=== PATIENT | female | born 1985 | race Caucasian/White ===

== ENCOUNTER → 2019-08-13 | Outpatient (CLI) | payer OTHER ==
[~2019-08-13] MED LIST: OCP; PRM25T PO
--- NOTE | 2019-08-13 11:44 | Diagnostic Imaging Report ---
INDICATION: Follow-up trauma left elbow. No previous for comparison FINDINGS: 3 views There does appear to be a small joint effusion. One view suggests nondisplaced fracture through the articulating surface of the midportion of the radial head. No other fractures are seen. IMPRESSION: Joint effusion with probable nondisplaced fracture through the articulating surface of the radial head. Dictated by: Dictated on workstation # [id number]
== END ==
LOC: RAD FS 11:17
PROVIDERS: ATTEND Nurse Practitioner
DX: M25.422 Effusion, left elbow (principal)
CPT/HCPCS: 73080